=== PATIENT | male | born 1995 | race Caucasian/White ===

== ENCOUNTER 2016-12-04 16:29 | Emergency (ER) | payer SELFPAY ==
--- NOTE | 2016-12-04 16:48 | ER Document Report ---
ED Medical Screen (RME) - General Chief Complaint: Rib Pain Stated Complaint: RIB PAIN Time seen by provider: 16:46 Mode of Arrival: Ambulatory Information source: Patient Notes: 21-year-old male complaining of pain under his lower right ribs. Sometimes it gets sharp. last it was associated with vomiting of blood last . This is been occurring his whole life but worse over the past 6 months. No history of gallbladder, pancreatitis, or liver disease. He is a smoker but occasional drinker. no Fever or chills. Physical Exam - Vital signs Vitals: Temp Pulse Resp BP Pulse Ox 98.1 F 82 16 135/72 H 97 12/04/16 16:36 12/04/16 16:36 12/04/16 16:36 12/04/16 16:36 12/04/16 16:36 Course - Vital Signs Vital signs: Temp Pulse Resp BP Pulse Ox 98.1 F 82 16 135/72 H 97 12/04/16 16:36 12/04/16 16:36 12/04/16 16:36 12/04/16 16:36 12/04/16 16:36
[2016-12-04 17:42] LABS: ABSOLUTE BASOPHILS # (AUTO) 0.1 10^3/uL (0.0-0.2); ABSOLUTE EOSINOPHILS # (AUTO) 0.3 10^3/uL (0.0-0.6); ABSOLUTE LYMPHOCYTES (AUTO) 2.6 10^3/uL (0.5-4.7); ABSOLUTE MONOCYTES (AUTO) 0.6 10^3/uL (0.1-1.4); BASOPHILS % (AUTO) 0.9 % (0-2); EOSINOPHILS % (AUTO) 3.5 % (0-6); HEMATOCRIT 45.1 % (37.9-51.0); HEMOGLOBIN 15.3 g/dL (13.5-17.0); HGB HCT DIFFERENCE 0.8; LYMPHOCYTES % (AUTO) 30.3 % (13-45); MEAN CORPUSCULAR HEMOGLOBIN 28.1 pg (27.0-33.4); MEAN CORPUSCULAR HGB CONC 33.9 g/dL (32.0-36.0); MEAN CORPUSCULAR VOLUME 83 fl (80-97); MONOCYTES % (AUTO) 7.5 % (3-13); RED BLOOD COUNT 5.44 10^6/uL (4.35-5.55); RED CELL DISTRIBUTION WIDTH 14.1 % (11.5-14.0); SEGMENTED NEUTROPHILS % (AUTO) 57.8 % (42-78); WHITE BLOOD COUNT 8.7 10^3/uL (4.0-10.5)
[2016-12-04 18:04] LABS: ALANINE AMINOTRANSFERASE 27 U/L (21-72); ALBUMIN 4.7 g/dL (3.5-5.0); ALKALINE PHOSPHATASE 82 U/L (38-126); ANION GAP 14 (5-19); ASPARTATE AMINO TRANSFERASE 24 U/L (17-59); BILIRUBIN,TOTAL 0.5 mg/dL (0.2-1.3); BLOOD UREA NITROGEN 17 mg/dL (7-20); CALCIUM 9.9 mg/dL (8.4-10.2); CARBON DIOXIDE 27 mmol/L (22-30); CHLORIDE 107 mmol/L (98-107); CREATININE RESULT 1.13 mg/dL (0.52-1.25); GLUCOSE 68 mg/dL (75-110); LIPASE 57.7 U/L (23-300); POTASSIUM 4.8 mmol/L (3.6-5.0); SODIUM 147.7 mmol/L (137-145); TOTAL PROTEIN 6.9 g/dL (6.3-8.2)
[2016-12-04 18:09] LABS: APPEARANCE,URINE CLEAR; BILIRUBIN,URINE NEGATIVE (NEGATIVE); GLUCOSE, URINE NEGATIVE (NEGATIVE); KETONES,URINE NEGATIVE (NEGATIVE); LEUKOCYTE ESTERASE,URINE NEGATIVE (NEGATIVE); NITRITE,URINE NEGATIVE (NEGATIVE); PROTEIN,URINE NEGATIVE (NEGATIVE); URINE SPECIFIC GRAVITY 1.026; UROBILINOGEN,URINE NEGATIVE mg/dL (<2.0)
[2016-12-04] MEDS ORDERED: LIDOCAINE 5% (700 MG) TRANSDERMAL ADH..PATCH TP ONE (18:21)
--- NOTE | 2016-12-04 18:25 | ER Document Report ---
ED General - General Chief Complaint: Rib Pain Stated Complaint: RIB PAIN Mode of Arrival: Ambulatory TRAVEL OUTSIDE OF THE [place] IN LAST 30 DAYS: No - HPI Patient complains to provider of: right upper quadrant pain Notes: Patient coming in for right upper quadrant pain states is been ongoing for months as a cramping sharp. Patient also explains his pain is also underneath his ribs. Denies trauma denies any shortness of breath denies fevers chills nausea vomiting diarrhea. Denies association with food ingestion. Denies recent travel denies recent antibiotics Past Medical History - General Information source: Patient - Social History Smoking Status: Current Every Day Smoker Family History: None Patient has suicidal ideation: No Patient has homicidal ideation: No Review of Systems - Review of Systems Constitutional: No symptoms reported EENT: No symptoms reported Cardiovascular: No symptoms reported Respiratory: No symptoms reported Gastrointestinal: Abdominal pain - Right upper quadrant pain Genitourinary: No symptoms reported Male Genitourinary: No symptoms reported Musculoskeletal: No symptoms reported Skin: No symptoms reported Hematologic/Lymphatic: No symptoms reported Neurological/Psychological: No symptoms reported Physical Exam - Vital signs Vitals: Temp Pulse Resp BP Pulse Ox 98.1 F 82 16 135/72 H 97 12/04/16 16:36 12/04/16 16:36 12/04/16 16:36 12/04/16 16:36 12/04/16 16:36 Interpretation: Normal - General General appearance: Appears well, Alert - HEENT Head: Normocephalic, Atraumatic Eyes: Normal Pupils: PERRL - Respiratory Respiratory status: No respiratory distress Chest status: Nontender Breath sounds: Normal Chest palpation: Normal - Cardiovascular Rhythm: Regular Heart sounds: Normal auscultation Murmur: No - Abdominal Inspection: Normal Distension: No distension Bowel sounds: Normal Tenderness: Nontender. No: Tender, McBurney's point, Botello's sign, Guarding, Rebound Organomegaly: No organomegaly - Back Back: Normal, Nontender - Extremities General upper extremity: Normal inspection, Nontender, Normal color, Normal ROM , Normal temperature General lower extremity: Normal inspection, Nontender, Normal color, Normal ROM , Normal temperature, Normal weight bearing. No: Nancy's sign - Neurological Neuro grossly intact: Yes Cognition: Normal Orientation: AAOx4 [place] Coma Scale Eye Opening: Spontaneous [place] Coma Scale Verbal: Oriented [place] Coma Scale Motor: Obeys Commands [place] Coma Scale Total: 15 Speech: Normal Motor strength normal: LUE, RUE, LLE, RLE Sensory: Normal - Psychological Associated symptoms: Normal affect, Normal mood - Skin Skin Temperature: Warm Skin Moisture: Dry Skin Color: Normal Course - Re-evaluation Re-evalutation: 12/04/16 20:40 Unclear etiology for the patient's symptoms. Possible duodenitis. No signs of gallbladder pathology no shortness of breath and signs of any pulmonary pathology. Patient will be given medications to treat possible gastritis duodenitis patient will be discharged home - Vital Signs Vital signs: Temp Pulse Resp BP Pulse Ox 98.3 F 75 20 128/63 H 98 12/04/16 18:46 12/04/16 18:46 12/04/16 18:46 12/04/16 18:46 12/04/16 18:46 - Laboratory Result Diagrams: 12/04/16 17:32 12/04/16 17:32 Laboratory results interpreted by me: 12/04/16 12/04/16 17:32 17:32 RDW 14.1 H Sodium 147.7 H Glucose 68 L Discharge - Discharge Clinical Impression: RUQ pain Condition: Good Disposition: HOME, SELF-CARE Instructions: Abdominal Pain ([facility]), Gastritis ([facility]) Additional Instructions: Your laboratory today shows no critical etiology. Please refrain from smoking and alcohol. Please eat a light diet avoid all fatty greasy foods. Prescriptions: Lidocaine [Lidoderm 5% (700 mg) Transdermal Patch] 1 patch TP DAILY #7 adh..patch Omeprazole 20 mg PO DAILY #14 capsule. Sucralfate [Carafate 1 gm Tablet] 1 gm PO ACHS #120 tablet Forms: Smoking Cessation Education, Return to Work
[2016-12-04 18:53] VITALS: BP 128/63
== END 2016-12-04 18:53 | disposition home or self-care (01) ==
LOC: ER 16:29
DX: R10.11 Right upper quadrant pain (principal); R07.81 Pleurodynia
CPT/HCPCS: 36415; 71020; 80053; 81001; 83690; 85025; 99283

== ENCOUNTER 2019-07-06 15:22 | Emergency (ER) | payer SELFPAY ==
[2019-07-06 15:39] VITALS: BP 122/72
[2019-07-06] MEDS ORDERED: LIDOCAINE 1%/EPINEPHRINE INJ 20 ML VIAL INJ ONE (16:12)
[2019-07-06] MEDS ORDERED: CLINDAMYCIN HCL 150 MG CAPSULE PO ONE (16:13)
--- NOTE | 2019-07-06 16:18 | ER Document Report ---
ED Skin Rash/Insect Bite/Abscs - General Chief Complaint: Abscess Stated Complaint: RASH Time Seen by Provider: 07/06/19 15:58 Notes: 24-year-old male with no significant past medical history presents to the emergency department with multiple abscesses in his right axilla. He states it started 1 month ago was a single golf ball size area of swelling and his boss told him a "home remedy where I take the skin from an eggshell and place it over it and wake up in the morning and take it off". He says he tried that and the area of swelling actually came to ahead and he was able to express purulent discharge. He states over the last week he has developed into multiple abscesses with many heads and he has been popping them at home but states that he was getting some surrounding erythema decided to seek treatment. He denies any fevers or systemic illness, denies any significant red streaks, denies any lymphadenopathy denies history of MRSA, denies IV drug use. No other complaints TRAVEL OUTSIDE OF THE [place] IN LAST 30 DAYS: No - Related Data Allergies/Adverse Reactions: Sulfa (Sulfonamide Antibiotics) Allergy (Verified 07/06/19 16:10) Past Medical History - Social History Smoking Status: Current Every Day Smoker Chew tobacco use (# tins/day): No Frequency of alcohol use: Occasional Drug Abuse: Cocaine, Marijuana Family History: None Patient has suicidal ideation: No Patient has homicidal ideation: No Renal/ Medical History: Denies: Hx Peritoneal Dialysis Psychiatric Medical History: Reports: Hx Attention Deficit Hyperactivity Disorder, Hx Bipolar Disorder - borderline - Immunizations Hx Diphtheria, Pertussis, Tetanus Vaccination: Yes Review of Systems - Review of Systems Constitutional: See HPI EENT: No symptoms reported Cardiovascular: No symptoms reported Respiratory: No symptoms reported Gastrointestinal: No symptoms reported Genitourinary: No symptoms reported Male Genitourinary: No symptoms reported Musculoskeletal: No symptoms reported Skin: See HPI Hematologic/Lymphatic: No symptoms reported Neurological/Psychological: No symptoms reported Physical Exam - Vital signs Vitals: Temp Pulse Resp BP Pulse Ox 98.6 F 92 19 122/72 96 07/06/19 15:37 07/06/19 15:37 07/06/19 15:37 07/06/19 15:37 07/06/19 15:37 - Notes Notes: PHYSICAL EXAMINATION: Reviewed vital signs and charting by RN GENERAL: Alert, interacts well. No acute distress. HEAD: Normocephalic, atraumatic. EYES: Pupils equal and round. Extraocular movements intact. ENT: Oral mucosa moist, tongue midline. NECK: Full range of motion. Trachea midline. EXTREMITIES: Moves all 4 extremities spontaneously. No edema, No cyanosis. PSYCH: Normal affect, normal mood. SKIN: Warm, dry, normal turgor. Multiple abscesses in the right axilla, ultrasound placed over the area and there were areas of fluid-filled space, colo r placed over and there was no evidence of blood flow to any of the fluid spaces. Course - Re-evaluation Re-evalutation: 07/06/19 16:51 Performed incision and drainage of 4 abscesses in the right axilla. Areas were indurated and ultrasound was 5 prior to and there was no evidence of blood flow and it appeared that there were small fluid pockets present. Patient tolerated the procedure well and plan is to put him on clindamycin p.o. 450 mg every 8 hours for 7 days. - Vital Signs Vital signs: Temp Pulse Resp BP Pulse Ox 98.6 F 92 19 122/72 96 07/06/19 15:37 07/06/19 15:37 07/06/19 15:37 07/06/19 15:37 07/06/19 15:37 Procedures - Incision and Drainage Right Arm Type: Multiple Anesthetic type: 1% Lidocaine w/epi Blade size: 16 I&D procedure: Chlorprep applied Incision Method: Incision made by scalpel Discharge - Discharge Clinical Impression: Abscess Cellulitis Qualifiers: Site of cellulitis: extremity Site of cellulitis of extremity: axilla Laterality: right Qualified Code(s): L03.111 - Cellulitis of right axilla Condition: Good Disposition: HOME, SELF-CARE Additional Instructions: You were seen for an abscess that required drainage. Please clean this area with soap and water twice daily and apply a topical antibiotic. Dress the area after each cleaning. Please take the clindamycin 3 capsules 3 times per day for 7 days until it is gone. Please take it in its entirety. Please return if you develop fever, vomiting, the pain at the site worsens, you notice spreading redness from the area, or you have any other symptoms that are concerning to you. Prescriptions: Clindamycin HCl [Cleocin 150 mg Capsule] 150 mg PO Q8H 7 Days #63 capsule
== END 2019-07-06 17:35 | disposition home or self-care (01) ==
LOC: ER 15:22
DX: L02.411 Cutaneous abscess of right axilla (principal); L03.111 Cellulitis of right axilla; F17.200 Nicotine dependence, unspecified, uncomplicated; F14.10 Cocaine abuse, uncomplicated; F12.10 Cannabis abuse, uncomplicated; Z88.2 Allergy status to sulfonamides
CPT/HCPCS: 99283; 87070; 87205; 87077; 87186; 10061; J3490